=== PATIENT | male | born 1960 | race Caucasian/White ===

== ENCOUNTER → 2023-09-27 13:23 | Outpatient (REF) | payer BC, SELFPAY | LOC: RCS 13:23 | PROVIDERS: ATTENDING PHYSICIAN Internal Medicine Cardiovascular Disease; FAMILY PHYSICIAN Family Medicine | DX: R06.09 Other forms of dyspnea (principal) | CPT/HCPCS: 93017 ==

== ENCOUNTER → 2023-10-06 08:00 | Outpatient (REF) | payer BC, SELFPAY | LOC: RCS 08:00 | PROVIDERS: ATTENDING PHYSICIAN Internal Medicine Cardiovascular Disease; FAMILY PHYSICIAN Family Medicine | DX: R06.09 Other forms of dyspnea (principal) | CPT/HCPCS: 93306 ==